=== PATIENT | female | born 1970 | race Hispanic/Latino ===

== ENCOUNTER 2017-08-24 06:28 | Observation (INO) | payer BC ==
[2017-08-23 13:23] LABS: Basophils # (Auto) 0.1 K/mm3 (0.0-0.1); Basophils % (Auto) 0.8 % (0.0-1.8); Eosinophils # (Auto) 0.3 K/mm3 (0.0-0.4); Eosinophils % (Auto) 3.6 % (0.0-4.3); Hematocrit 39.6 % (30.3-42.9); Hemoglobin 13.5 gm/dl (10.1-14.3); Lymphocytes # (Auto) 2.3 K/mm3 (1.2-5.4); Lymphocytes % (Auto) 26.6 % (13.4-35.0); Mean Corpuscular HGB Conc 34 % (30-34); Mean Corpuscular Hemoglobin 34 pg (28-32); Mean Corpuscular Volume 99 fl (79-97); Monocytes # (Auto) 0.5 K/mm3 (0.0-0.8); Monocytes % (Auto) 5.9 % (0.0-7.3); Platelet Count 173 K/mm3 (140-440); Red Cell Distribution Width 13.6 % (13.2-15.2)
[2017-08-24] MEDS ORDERED: NACL BACTERIOSTATIC INFILTRATI ONE (06:53)
--- NOTE | 2017-08-24 07:36 | Anesthesia Consultation ---
Anesthesia Consult and Med Hx Date of service: 08/24/17 - Airway Anesthetic Teeth Evaluation: Good ROM Head & Neck: Adequate Mental/Hyoid Distance: Adequate Mallampati Class: Class II Intubation Access Assessment: Good - Pulmonary Exam CTA: Yes - Cardiac Exam Cardiac Exam: RRR - Pre-Operative Health Status ASA Pre-Surgery Classification: ASA3 Proposed Anesthetic Plan: General - Pulmonary Hx Smoking: Yes - Cardiovascular System Hx Hypertension: Yes - Central Nervous System Hx Psychiatric Problems: No - Other Systems Hx Alcohol Use: Yes (occas) Hx Cancer: No
--- NOTE | 2017-08-24 07:37 | Anesthesia Day of Surgery ---
Anesthesia Day of Surgery - Day of Surgery Patient Examined: Yes Patient H&P Reviewed: Yes Patient is NPO: Yes
[2017-08-24] MEDS ORDERED: MARCAINE 0.25% INFILTRATI ONE ×2 (07:51→09:01)
[2017-08-24] MEDS: LACTATED RINGERS 1,000 ML IV SCH ×3 (08:00→21:36)
[2017-08-24] MEDS ORDERED: VERSED IV NR (08:00)
[2017-08-24] MEDS ORDERED: PEPCID PO NR (08:00)
[2017-08-24] MEDS ORDERED: DIPRIVAN 10 MG/ML IV ONE (08:22)
--- NOTE | 2017-08-24 08:26 | Short Stay Summary ---
Short Stay Documentation Date of service: 08/24/17 Narrative H&P: Patient is a 47 year old female who presents today for management of her stress incontinence - History H&P: obtained from office Past Medical History: hypertension, other (depression) Past Surgical History: Social history: - Allergies and Medications Current Medications: Allergies No Known Allergies Allergy (Verified 08/24/17 06:54) Home Medications Medication Instructions Recorded Confirmed Last Taken Type ALPRAZolam [Xanax TAB] 0.25 mg PO DAILY 08/23/17 08/24/17 08/23/17 History Aspirin [Low Dose Aspirin EC] 81 mg PO DAILY 08/23/17 08/24/17 08/23/17 History AtorvaSTATin [Lipitor] 20 mg PO DAILY 08/23/17 08/24/17 08/23/17 History Lisinopril [Zestril TAB] 5 mg PO DAILY 08/23/17 08/24/17 08/23/17 History Metoprolol [Lopressor TAB] 25 mg PO BID 08/23/17 08/24/17 08/24/17 History Active Medications Famotidine (Pepcid) 20 mg PO PREOP NR Stop: 08/24/17 12:00 Last Admin: 08/24/17 07:59 Dose: 20 mg Lactated Ringer's (Lactated Ringers) 1,000 mls @ 100 mls/hr IV DIRECT GRAY Last Admin: 08/24/17 08:00 Dose: 100 mls/hr Cefazolin Sodium (Ancef/Ns 1 Gm/50 Ml) 1 gm in 50 mls @ 100 mls/hr IV PREOP NR ; Protocol Midazolam HCl (Versed) 2 mg IV PREOP NR Stop: 08/24/17 23:59 Last Admin: 08/24/17 08:00 Dose: 2 mg - Physical exam General appearance: no acute distress HEENT: Atraumatic Lungs: Clear to auscultation, Normal air movement Breasts: deferred Heart: Regular rate, Normal S1, Normal S2 Gastrointestinal: normal, normoactive bowel sounds Rectal Exam: deferred Extremities: No edema - Brief post op/procedure progress note Date of procedure: 08/24/17 Pre-op diagnosis: Stress incontinence Post-op diagnosis: same Procedure: TVT-O Anesthesia: MAC Findings: Normal genitalia with mild cystocele. Normal bladder Surgeon: SHANA DAVIES Estimated blood loss: other (100cc) Pathology: none Specimen disposition: other Condition: stable - Hospital course Hospital course: unremarkable - Disposition Condition at discharge: Good Disposition: DC-01 TO HOME OR SELFCARE Short Stay Discharge Plan Activity: advance as tolerated Weight Bearing Status: Partial Weight Bearing (no lifting more than 7 pounds) Diet: regular Follow up with: SHANA DAVIES MD [Staff Physician] - 14 Days Prescriptions: HYDROcodone/APAP 5-325 [[place] 5/325] 2 each PO Q6HR PRN #40 tablet PRN Reason: Pain Ibuprofen 800 mg PO Q6H #40 tablet
[2017-08-24] MEDS ORDERED: SUBLIMAZE ONE (08:53)
[2017-08-24] MEDS ORDERED: XYLOCAINE MPF 2% ONE (08:53)
[2017-08-24] MEDS ORDERED: ANCEF/NS 1 GM/50 ML 1 GM/50 ML BAG IV NR (09:00)
[2017-08-24] MEDS ORDERED: ceFAZolin 1 GM in NACL 0.9% 20 ML IV NR (09:00)
[2017-08-24] MEDS ORDERED: WATER FOR IRRIG STERILE IR ONE (09:01)
[2017-08-24] MEDS ORDERED: NACL 0.9% IR ONE (09:01)
[2017-08-24] MEDS ORDERED: TORADOL ONE (09:46)
[2017-08-24] MEDS ORDERED: DECADRON ONE (09:46)
[2017-08-24] MEDS ORDERED: ZOFRAN ONE (09:46)
[2017-08-24] MEDS ORDERED: ANCEF ONE (11:04)
[2017-08-24] MEDS: NORCO 5/325 PO PRN ×2 (12:01→17:01)
[2017-08-25] MEDS: NORCO 5/325 PO PRN ×2 (00:40→07:22)
[2017-08-25] MEDS: LACTATED RINGERS 1,000 ML IV SCH (04:48)
[2017-08-25 08:48] VITALS: BP 127/79
--- NOTE | 2017-09-20 21:13 | Operative Report ---
PREOPERATIVE DIAGNOSIS: Stress urinary incontinence. POSTOPERATIVE DIAGNOSIS: Stress urinary incontinence. PROCEDURE: Transvaginal tape. SURGEON: Zari Bright M.D. ANESTHESIA: General with LMA. ESTIMATED BLOOD LOSS: 200 mL. IV FLUIDS: 1000 mL. COMPLICATIONS: None. SPECIMENS: None. DESCRIPTION OF PROCEDURE: The patient taken to the OR with IV running in place. She was properly identified as herself. She was placed in dorsal lithotomy position and prepped and draped in normal sterile fashion under adequate anesthesia. Attention was turned to the patient's vagina. A weighted speculum was placed into the vagina. The bladder was then drained of approximately 100 mL of clear yellow urine. The vaginal mucosa overlying the urethra was then injected with 5 mL of Marcaine with epinephrine. The exit point on each side was then measured and marked with a sterile marking pen. The incision was then made longitudinally in the vaginal mucosa underlying the urethra and the urethral sphincter. Mucosa was then dissected off of the bladder bilaterally to the level of the obturator foramen. The foramen was then punctured using the scissors following which time the area was injected with approximately 5 mL of 0.25% Marcaine on a spinal needle. Using the TVT guide, the trocar was then placed into the patient's right side of the obturator foramen and out through the obinna on the inner thigh. Once through the skin, the front part of the trocar was removed and the mesh was pulled through. It was then clamped and cut. Likewise on the opposite side, the mucosa was dissected from the underlying bladder at the level of the obturator foramen, injected with Marcaine, and similarly the trocar containing the TVT tape was placed through that area and out through the inner thigh on the patient's left thigh. After the sheath had been pulled through, the sheath was clamped and cut. Following this, her bladder was retrograde filled with approximately 300 mL of normal saline. She was then placed in the reverse Trendelenburg position and pressure was applied to her lower abdomen to simulate an increased intraabdominal pressure. Of note, once the bladder was filled, there was a mild cystocele that developed was noted rather during this time. In any case, the TVT tape was then adjusted to the level where she had only minimal leakage. Once the point was reached where there was minimal leakage, the mesh was cut and the rest of the seed was removed. The procedure was finished up with a cystoscopy. There was no injury noted to the bladder. The mucosa overlying the mesh was then closed in a running fashion with 2-0 Vicryl and the exit point on each inner thigh were covered with Dermabond glue. The Rubio catheter was then placed to continue draining the bladder. The patient tolerated the procedure well. She was awakened and taken to recovery in stable condition. The sponge, lap, needle, and instrument counts were correct x 2. JOB# [id number] [place]
== END 2017-08-25 12:22 | disposition home or self-care (01) ==
LOC: OR 06:28 → OB 10:16
PROVIDERS: ADMIT Obstetrics & Gynecology; ATTEND Obstetrics & Gynecology
DX: N39.3 Stress incontinence (female) (male) (principal); I10 Essential (primary) hypertension; F32.9 Major depressive disorder, single episode, unspecified
CPT/HCPCS: 36415; 57288; 84703; 85025; 96374; A4217; C1771; G0378; J0690; J1100; J1885; J2250; J2405; J2704; J3010; J7120